=== PATIENT | female | born 2000 ===

== ENCOUNTER 2021-08-26 15:52 | Outpatient (CLI) | payer OTHER ==
[2021-08-26] MEDS ORDERED: LACTATED RINGERS 500 ML IV ONE (16:30)
[2021-08-26] MEDS ORDERED: LACTATED RINGERS 1,000 ML IV ONE (16:30)
[2021-08-26 16:43] VITALS: BP 117/59
[2021-08-26 16:48] LABS: Bilirubin,Urine NEG (Negative); Blood,Urine NEG (Negative); Color,Urine Colorless (Yellow); Protein,Urine <15 mg/dL mg/dL (Negative); Urobilinogen,Urine < 2.0 mg/dL (<2.0)
[2021-08-26] MEDS ORDERED: ACETAMINOPHEN 500 MG TAB PO ONE (19:50)
== END 2021-08-26 19:16 | disposition home or self-care (01) ==
LOC: TRG 15:52 → APU 15:53 → TRG 19:16
PROVIDERS: ATTEND Obstetrics & Gynecology
DX: Z34.92 Encounter for supervision of normal pregnancy, unspecified, second trimester (principal)
CPT/HCPCS: 59025; 81001

== ENCOUNTER 2021-11-21 20:03 | Inpatient (IN) | payer OTHER ==
[2021-11-22] MEDS ORDERED: LIDOCAINE (2%) 20 MG/1 ML VIAL 20 ML MDV INFILTRATI ONE ×2 (00:21→03:40)
[2021-11-22] MEDS ORDERED: ONDANSETRON 4 MG/2 ML INJ IV PRN ×2 (00:21→05:24)
[2021-11-22] MEDS ORDERED: ACETAMINOPHEN 325 MG TAB PO PRN ×2 (00:21→05:24)
[2021-11-22] MEDS ORDERED: BUTORPHANOL 2 MG/1 ML INJ IV PRN (00:21)
[2021-11-22] MEDS ORDERED: CARBOPROST TROMETHAMINE 250 MCG/1 ML INJ IM PRN (00:21)
[2021-11-22] MEDS ORDERED: fentaNYL 100 MCG/2 ML INJ IV PRN (00:21)
[2021-11-22] MEDS ORDERED: OXYTOCIN 10 UNIT/1 ML INJ IM PRN (00:21)
[2021-11-22] MEDS ORDERED: miSOPROStol 200 MCG TAB PR PRN (00:21)
[2021-11-22] MEDS ORDERED: LOPERAMIDE 2 MG CAP PO PRN (00:21)
[2021-11-22] MEDS ORDERED: TERBUTALINE 1 MG/1 ML INJ SUB-Q PRN (00:21)
[2021-11-22] MEDS ORDERED: ePHEDrine SULFATE 50 MG/1 ML INJ IV PRN (00:21)
[2021-11-22] MEDS ORDERED: MINERAL OIL 30 ML ORAL LIQD PO PRN (00:21)
[2021-11-22] MEDS ORDERED: METHYLERGONOVINE MALEATE 0.2 MG/ML VIAL IM PRN (00:21)
[2021-11-22] MEDS ORDERED: LACTATED RINGERS 1,000 ML IV SCH (00:30)
--- NOTE | 2021-11-22 00:36 | Ultrasound Report ---
ULTRASOUND OBSTETRIC LIMITED ULTRASOUND BIOPHYSICAL PROFILE INDICATION / CLINICAL INFORMATION: wellbeing. Clinical Gestational Age (GA) in weeks, days: 39, 1 TECHNIQUE: Transabdominal. COMPARISON: None available. FINDINGS: BREATHING MOVEMENT = 2 GROSS BODY MOVEMENT = 2 TONE = 2 QUALITATIVE AMNIOTIC FLUID VOLUME = 2 (there is one pocket of amniotic fluid measuring 2.5 cm.) TOTAL BIOPHYSICAL SCORE = 8/8 HEART RATE (beats per minute): 135 AMNIOTIC FLUID INDEX (cm) = at least 2.5 (normal = 7-24 cm) PRESENTATION: Cephalic. Biparietal Diameter = 8.6 cm = 34, 4 weeks, days Head Circumference = 30.0 cm = 33, 2 weeks, days Abdominal Circumference = 30.7 cm = 34, 5 weeks, days Femur Length = 7.4 cm = 38, 0 weeks, days Average Ultrasound Age (AUA) = 35, 1 weeks, days ADDITIONAL FINDINGS: None. IMPRESSION: 1. Biophysical Score = 8/8 2. Oligohydramnios Signer Name: Dominick Coto DO Signed: 11/22/2021 12:32 AM Workstation Name: [id number]
[2021-11-22] MEDS ORDERED: OXYTOCIN DRIP 30 UNITS/500 ML BAG IV SCH (01:00)
[2021-11-22 01:07] LABS: Hematocrit 33.2 % (30.3-42.9); Hemoglobin 10.5 gm/dl (10.1-14.3); Mean Corpuscular HGB Conc 32 % (30-34); Mean Corpuscular Volume 79 fl (79-97); Platelet Count 194 K/mm3 (140-440); Red Blood Count 4.19 M/mm3 (3.65-5.03); Red Cell Distribution Width 17.4 % (13.2-15.2)
--- NOTE | 2021-11-22 05:20 | History and Physical Report ---
History of Present Illness Date of examination: 11/22/21 Date of admission: 11/22/21 00:21 Chief complaint: Contractions History of present illness: 21 y/o at 39-2/7 weeks presents to OBT reporting CTX that were regular and painful q 3-5 min. No VB or LOF. Good FM. She was 3 cm dilated. She ambulated and then the SVE was 4.5 cm dilated. OB US Limited revealed EFW in 4th %-ile and SUBHASH= 2. She is admitted to L&D for labor, IUGR, and oligohydramnios. Past History Past Medical History: no pertinent history Past Surgical History: no surgical history Family/Genetic History: none Social history: no significant social history - Obstetrical History Expected Date of Delivery: 11/27/21 Actual Gestation: 39 Week(s) 2 Day(s) : 2 Para: 1 Medications and Allergies Allergies Allergy/AdvReac Type Severity Reaction Status Date / Time No Known Allergies Allergy Verified 10/03/18 10:05 Home Medications Medication Instructions Recorded Confirmed Last Taken Type No Known Home Medications [No 10/02/18 10/03/18 Unknown History Reported Home Medications] Active Meds: Active Medications Acetaminophen (Acetaminophen 325 Mg Tab) 650 mg PO Q4H PRN PRN Reason: Pain, Mild (1-3) Butorphanol Tartrate (Butorphanol 2 Mg/1 Ml Inj) 1 mg IV Q2H PRN PRN Reason: Pain, Moderate(4-6) LABOR PAIN Carboprost Tromethamine (Carboprost Tromethamine 250 Mcg/1 Ml Inj) 250 mcg IM ONCE PRN PRN Reason: Uterine Bleeding Ephedrine Sulfate (Ephedrine Sulfate 50 Mg/1 Ml Inj) 10 mg IV Q2M PRN PRN Reason: Hypotension Fentanyl (Fentanyl 100 Mcg/2 Ml Inj) 100 mcg IV Q2H PRN PRN Reason: Pain,Severe (7-10) LABOR PAIN Last Admin: 11/22/21 03:31 Dose: 100 mcg Documented by: Lactated Ringer's (Lactated Ringers) 1,000 mls @ 125 mls/hr IV DIRECT DENIZ Last Admin: 11/22/21 01:04 Dose: 125 mls/hr Documented by: Oxytocin/Sodium Chloride (Pitocin/Ns 30 Unit/500ml) 30 units in 500 mls @ 40 mls/hr IV TITR DENIZ; Protocol Loperamide HCl (Loperamide 2 Mg Cap) 2 mg PO ONCE PRN PRN Reason: give with Hemabate Methylergonovine Maleate (Methylergonovine Maleate 0.2 Mg/Ml Vial) 0.2 mg IM ONCE PRN PRN Reason: Uterine Bleeding Mineral Oil (Mineral Oil 30 Ml Oral Liqd) 30 ml PO QHS PRN PRN Reason: Constipation Misoprostol (Misoprostol 200 Mcg Tab) 800 mcg DE ONCE PRN PRN Reason: Uterine Bleeding Ondansetron HCl (Ondansetron 4 Mg/2 Ml Inj) 4 mg IV Q8H PRN PRN Reason: Nausea And Vomiting Oxytocin (Oxytocin 10 Unit/1 Ml Inj) 10 unit IM ONCE PRN PRN Reason: Uterine Bleeding Terbutaline Sulfate (Terbutaline 1 Mg/1 Ml Inj) 0.25 mg SUB-Q ONCE PRN PRN Reason: Hyperstimulation/Hypertonicity Review of Systems All systems: negative - Vital Signs Vital signs: Vital Signs Pulse BP 92 H 119/70 11/21/21 20:34 11/21/21 20:34 Temp Pulse Resp BP Pulse Ox 98.5 F 86 18 121/65 98 11/22/21 03:32 11/22/21 04:59 11/22/21 03:32 11/22/21 04:59 11/22/21 04:34 - Physical Exam Breasts: Positive: normal Cardiovascular: Regular rate Lungs: Positive: Normal air movement Abdomen: Positive: normal appearance Genitourinary (Female): Positive: normal external genitalia Vulva: both: normal Vagina: Positive: normal moisture Uterus: Positive: enlarged Adnexa: both: normal Anus/Rectum: Positive: normal perianal skin Extremities: Positive: normal Deep Tendon Reflex Grade: Normal +2 - Obstetrical FHR: category 1 Uterine Contraction Monitor Mode: Palpation Cervical Dilatation: 4.5 Cervical Effacement Percentage: 80 station: -3 Uterine Contraction Frequency (min): 4 Uterine Contraction Pattern: Regular Uterine Contraction Intensity: Moderate Results Result Diagrams: 11/22/21 00:35 Abnormal lab results 11/22/21 Range/Units 00:35 WBC 12.1 H (4.5-11.0) K/mm3 MCH 25 L (28-32) pg RDW 17.4 H (13.2-15.2) % All other labs normal. Ultrasound: report reviewed (EFW= 2668 g (4th %-ile). SUBHASH= 2.0 cm.) Assessment and Plan - Patient Problems (1) 39 weeks gestation of Current Visit: Yes Status: Acute Plan to address problem: care is UTD. Obtain records in AM. (2) IUGR, Current Visit: Yes Status: Acute Plan to address problem: Etiology unknown. Admit to L&D. AROM when possible. Augment w/ Pitocin thereafter. (3) Oligohydramnios Current Visit: Yes Status: Acute Plan to address problem: Admit to L&D. AROM when possible. Augment w/ Pitocin thereafter. (4) Labor abnormal Current Visit: Yes Status: Acute Plan to address problem: Admit to L&D. AROM when possible. Augment w/ Pitocin thereafter.
[2021-11-22] MEDS ORDERED: LANOLIN/ZINC/DIMETHICONE (LANSINOH) 7 GM TP PRN (05:24)
[2021-11-22] MEDS ORDERED: MAGNESIUM HYDROXIDE (MOM) ORAL LIQD UDC PO PRN (05:24)
[2021-11-22] MEDS ORDERED: HYDROcodone/ACETAMINOPHEN 5-325 MG TAB PO PRN (05:24)
[2021-11-22] MEDS ORDERED: WITCH HAZEL/ GLYCERIN PAD TP PRN (05:24)
[2021-11-22] MEDS ORDERED: PROMETHAZINE 25 MG RECT SUPP PR PRN (05:24)
[2021-11-22] MEDS ORDERED: diphenhydrAMINE 25 MG CAP PO PRN (05:24)
[2021-11-22] MEDS ORDERED: PROMETHAZINE 25 MG TAB PO PRN (05:24)
--- NOTE | 2021-11-22 05:24 | Procedure Note ---
OB Delivery Note - Delivery Date of Delivery: 11/22/21 Surgeon: LORA AVALOS Estimated blood loss: 300cc - Vaginal Delivery position: OA Intrapartum events: none, other(please specify) Delivery induction: none Delivery monitor: external FHT Route of delivery: Delivery placenta: spontaneous Delivery cord: 3 umbilical vessels Episiotomy: none Delivery laceration: other ((B) periurethral) Delivery repair: vicryl Anesthesia: local - Infant A at 1 minute: 8 at 5 minutes: 9 Gender: Female
[2021-11-22] MEDS: IBUPROFEN 600 MG TAB PO SCH ×2 (05:33→23:13)
[2021-11-23 00:52] LABS: Hematocrit 30.9 % (30.3-42.9); Hemoglobin 9.7 gm/dl (10.1-14.3)
[2021-11-23] MEDS: IBUPROFEN 600 MG TAB PO SCH (07:16)
--- NOTE | 2021-11-23 07:52 | Progress Note ---
Assessment and Plan PPD#1 doing well 1. Routine care and discharge home later today Subjective Date of service: 11/23/21 Principal diagnosis: PPD#1 Interval history: Pt has no complaints. pt is breast and bottle feeding. Vag bleed less than a period Objective - Constitutional Vitals: Vital Signs - 12hr 11/22/21 11/22/21 11/23/21 21:40 23:13 00:13 Temperature Pulse Rate Respiratory 18 18 Rate Blood Pressure O2 Sat by Pulse Oximetry O2 Sat by Pulse 98 Oximetry [ Bilateral Throughout] 11/23/21 11/23/21 02:03 07:16 Temperature 98.5 F Pulse Rate 64 Respiratory 20 18 Rate Blood Pressure 99/59 O2 Sat by Pulse 97 Oximetry O2 Sat by Pulse Oximetry [ Bilateral Throughout] General appearance: Present: no acute distress - Neck Neck: normal ROM - Respiratory Respiratory effort: normal - Breasts Breasts: deferred - Cardiovascular Rhythm: regular Extremities: No edema - Gastrointestinal General gastrointestinal: Present: soft, non-tender - Genitourinary Female genitourinary: other (Fundus firm, 2cm below the umbilicus) - Labs CBC & Chem 7: 11/23/21 00:04 Labs: Abnormal lab results 11/23/21 Range/Units 00:04 Hgb 9.7 L (10.1-14.3) gm/dl Medications & Allergies - Medications Allergies/Adverse Reactions: Allergies No Known Allergies Allergy (Verified 10/03/18 10:05) Home Medications: Home Medications Medication Instructions Recorded Confirmed Last Taken Type No Known Home Medications [No 10/02/18 10/03/18 Unknown History Reported Home Medications] Active Medications: Generic Name Dose Route Start Last Admin Trade Name Freq PRN Reason Stop Dose Admin Acetaminophen 650 mg 11/22/21 05:24 Acetaminophen 325 Mg Tab PO Q4H PRN Pain MILD(1-3)/Fever >100.5/[place] Hydrocodone Bitart/Acetaminophen 2 each 11/22/21 05:24 Hydrocodone/Acetaminophen 5-325 Mg Tab PO Q6H PRN Pain, Moderate (4-6) Bisacodyl 10 mg 11/22/21 05:24 Bisacodyl 10 Mg Rect Supp WI BID PRN Constipation Butorphanol Tartrate 1 mg 11/22/21 00:21 Butorphanol 2 Mg/1 Ml Inj IV Q2H PRN Pain, Moderate(4-6) LABOR PAIN Carboprost Tromethamine 250 mcg 11/22/21 00:21 Carboprost Tromethamine 250 Mcg/1 Ml Inj IM ONCE PRN Uterine Bleeding Diphenhydramine HCl 25 mg 11/22/21 05:24 Diphenhydramine 25 Mg Cap PO Q6H PRN Itching Ephedrine Sulfate 10 mg 11/22/21 00:21 Ephedrine Sulfate 50 Mg/1 Ml Inj IV Q2M PRN Hypotension Fentanyl 100 mcg 11/22/21 00:21 11/22/21 03:31 Fentanyl 100 Mcg/2 Ml Inj IV 100 mcg Q2H PRN Administration Pain,Severe (7-10) LABOR PAIN Ferrous Sulfate 325 mg 11/23/21 10:00 Ferrous Sulfate 325 Mg Tab PO BID DENIZ Lactated Ringer's 1,000 mls @ 125 mls/hr 11/22/21 00:30 11/22/21 01:04 Lactated Ringers IV 125 mls/hr DIRECT DENIZ Administration Oxytocin/Sodium Chloride 30 units in 500 mls @ 40 mls/hr 11/22/21 01:00 Pitocin/Ns 30 Unit/500ml IV TITR DENIZ Protocol Ibuprofen 600 mg 11/22/21 06:00 11/23/21 07:16 Ibuprofen 600 Mg Tab PO 600 mg Q6H DENIZ Administration Loperamide HCl 2 mg 11/22/21 00:21 Loperamide 2 Mg Cap PO ONCE PRN give with Hemabate Magnesium Hydroxide 30 ml 11/22/21 05:24 Magnesium Hydroxide (Mom) Oral Liqd Udc PO HS PRN Constipation Methylergonovine Maleate 0.2 mg 11/22/21 00:21 Methylergonovine Maleate 0.2 Mg/Ml Vial IM ONCE PRN Uterine Bleeding Mineral Oil 30 ml 11/22/21 00:21 Mineral Oil 30 Ml Oral Liqd PO QHS PRN Constipation Misoprostol 800 mcg 11/22/21 00:21 Misoprostol 200 Mcg Tab WI ONCE PRN Uterine Bleeding Multi-Ingredient Ointment 1 applic 11/22/21 05:24 Lanolin/Zinc/Dimethicone (Lansinoh) 7 Gm TP PRN PRN Sore Nipples Ondansetron HCl 4 mg 11/22/21 05:24 Ondansetron 4 Mg/2 Ml Inj IV Q8H PRN Nausea And Vomiting Oxytocin 10 unit 12/31/21 00:21 Oxytocin 10 Unit/1 Ml Inj IM ONCE PRN Uterine Bleeding Promethazine HCl 25 mg 11/22/21 05:24 Promethazine 25 Mg Rect Supp WI Q6H PRN Nausea And Vomiting Promethazine HCl 25 mg 11/22/21 05:24 Promethazine 25 Mg Tab PO Q6H PRN Nausea And Vomiting Sodium Chloride 10 ml 11/22/21 06:00 Sodium Chloride 0.9% 10 Ml Flush Syringe IV PRN PRN LINE FLUSH Terbutaline Sulfate 0.25 mg 11/22/21 00:21 Terbutaline 1 Mg/1 Ml Inj SUB-Q ONCE PRN Hyperstimulation/Hypertonicity Witch Mary/Glycerin 1 each 11/22/21 05:24 Witch Mary/ Glycerin Pad TP PRN PRN Hemorrhoid/cleansing/soothing
--- NOTE | 2021-11-23 07:55 | Discharge Summary ---
Providers - Providers Date of Admission: 11/22/21 00:21 Date of discharge: 11/23/21 Attending physician: LORA AVALOS MD Primary care physician: LORA AVALOS MD Hospitalization Reason for admission: active labor Delivery: Laceration: 1st degree Other procedures: none complications: none Discharge diagnosis: IUP at term delivered [place] baby: female Pertinent studies: Labs Hospital course: Stable hospital course Condition at discharge: Good Disposition: 01 HOME / SELF CARE / HOMELESS - Discharge Diagnoses (1) Term delivered Status: Acute (2) Anemia Status: Acute Plan - Provider Discharge Summary Activity: routine, no sex for 6 weeks, no heavy lifting 4 weeks, no strenuous exercise Diet: routine Instructions: routine Additional instructions: Continue taking your vitamin and iron supplements at home. Follow up at [facility] in 2 weeks. Avoid intercourse, driving, lifting, housework, and tub baths for 6 weeks (you may take showers). Call your doctor immediately for: * Fever > 100.5 * Heavy vaginal bleeding ( >1 pad per hour) * Severe persistent headache * Shortness of breath * Reddened, hot, painful area to leg or breast - Follow up plan Follow up: LORA AVALOS MD [Primary Care Provider] - 14 Days
[2021-11-23 10:00] VITALS: BP 105/47
[2021-11-23] MEDS ORDERED: FERROUS SULFATE 325 MG TAB PO SCH (10:00)
[2021-11-23 10:42] LABS: Basophils % (Auto) 0.2 % (0.0-1.8); Eosinophils # (Auto) 0.2 K/mm3 (0.0-0.4); Eosinophils % (Auto) 1.8 % (0.0-4.3); Hematocrit 29.4 % (30.3-42.9); Hemoglobin 9.2 gm/dl (10.1-14.3); Lymphocytes # (Auto) 3.7 K/mm3 (1.2-5.4); Lymphocytes % (Auto) 35.2 % (13.4-35.0); Mean Corpuscular HGB Conc 31 % (30-34); Mean Corpuscular Volume 80 fl (79-97); Monocytes # (Auto) 0.4 K/mm3 (0.0-0.8); Monocytes % (Auto) 4.2 % (0.0-7.3); Platelet Count 182 K/mm3 (140-440); Red Cell Distribution Width 17.7 % (13.2-15.2)
== END 2021-11-23 14:48 | disposition home or self-care (01) | DRG 807 ==
LOC: TRG 20:03 → APU 20:05 → TRG 11-22 00:21 → LD 11-22 00:21 → OB 11-22 16:13
PROVIDERS: ADMIT Obstetrics & Gynecology Gynecology; ATTEND Obstetrics & Gynecology Gynecology
PROC: 10E0XZZ Delivery of Products of Conception, External Approach (ICD-10-PCS; principal; 2021-11-22)
PROC: 0UQMXZZ Repair Vulva, External Approach (ICD-10-PCS; 2021-11-22)
DX: O41.03X0 Oligohydramnios, third trimester, not applicable or unspecified (principal); Z37.0 Single live birth; Z3A.39 39 weeks gestation of pregnancy; O36.5930 Maternal care for other known or suspected poor fetal growth, third trimester, not applicable or unspecified; O71.82 Other specified trauma to perineum and vulva; O90.81 Anemia of the puerperium
CPT/HCPCS: 36415; 59025; 76816; 76819; 85014; 85018; 85025; 85027; 86592; 86762; 86850; 86900; 86901; G0378; J3010; J7120; U0003